=== PATIENT | male | born 1950 | race Hispanic/Latino ===

== ENCOUNTER → 2018-05-09 | Outpatient (CLI) | payer MEDICARE, OTHER ==
--- NOTE | 2018-05-09 12:54 | Diagnostic Imaging Report ---
PROCEDURE: BARIUM SWALLOW was performed with Sodium Carbonate and Barium. TECHNIQUE: Crystals were swallowed. Subsequently multiple fluoroscopic sequences with the patient swallowing thick and thin barium was performed. OPERATORS: COMPARISON: None. INDICATIONS: Not provided. FINDINGS: Swallow: The swallowing mechanism was grossly normal. No gross aspiration is noted. The esophagus was normally distensible. There was a primary and secondary wave that cleared the majority of the contrast, however multiple tertiary waves were also noted. Mucosa appears unremarkable. Gastroesophageal junction: There is a small hiatal hernia. Reflux: There is spontaneous mild gastroesophageal reflux. The visualized portion of the stomach and proximal small bowel are unremarkable. IMPRESSION: Per discussion with the patient, he states his primary concern is swallowing mechanism and points to his neck as the area of concern. While no gross aspiration was noted on this study, a dedicated modified barium swallow study could be considered for further evaluation given symptoms. While the majority of contrast cleared the esophagus, multiple tertiary contractions were noted, a non-specific finding, but could indicate an underlying esophageal motility disorder. Small hiatal hernia with mild spontaneous gastroesophageal reflux. Dictated by: CHAVEZ NOVAK M.D. on 05/09/2018 at 13:02 Electronically approved by: CHAVEZ NOVAK M.D. on 05/09/2018 at 13:02
== END ==
LOC: DX 07:52
PROVIDERS: ATTEND Psychiatry & Neurology Clinical Neurophysiology
DX: R13.10 Dysphagia, unspecified (principal)
CPT/HCPCS: 74220